=== PATIENT | female | born 1985 | race Two or more races ===

== ENCOUNTER 2018-05-28 15:17 | Outpatient (CLI) | payer BC ==
[2018-05-28 16:09] LABS: BASOPHILS % (AUTO) 0.1 % (0.0-2.0); EOSINOPHILS % (AUTO) 0.3 % (0.0-6.0); HEMATOCRIT 40 % (33-45); HEMOGLOBIN 13.7 g/dL (11.5-14.8); LYMPHOCYTES # (AUTO) 2.3 /CMM (0.8-4.8); LYMPHOCYTES % (AUTO) 21.7 % (20.0-44.0); MEAN CORPUSCULAR HGB CONC 34 g/dl (31.0-36.0); MEAN CORPUSCULAR VOLUME 90 fL (82-100); MONOCYTES # (AUTO) 0.7 /CMM (0.1-1.30); MONOCYTES % (AUTO) 6.5 % (2.0-12.0); NEUTROPHILS # (AUTO) 7.7 /CMM (1.8-8.9); NEUTROPHILS % (AUTO) 71.4 % (43.0-81.0); PLATELET COUNT (AUTO) 303 /CMM (150-450); RED BLOOD CELL COUNT(AUTO) 4.43 MIL/uL (4.0-5.2); WHITE BLOOD COUNT (AUTO) 10.8 K/uL (4.3-11.0)
[2018-05-30 12:17] LABS: *HGBFRC HEMOGLOBIN A2 2.4 % (1.8-3.2)
== END 2018-05-28 23:59 | disposition home or self-care (01) ==
LOC: LAB 15:17
PROVIDERS: ATTEND Obstetrics & Gynecology
DX: E84.0 Cystic fibrosis with pulmonary manifestations (principal); N91.0 Primary amenorrhea; B99.8 Other infectious disease; Z20.2 Contact with and (suspected) exposure to infections with a predominantly sexual mode of transmission; Z33.1 Pregnant state, incidental
CPT/HCPCS: 36415; 83021; 84443-TC; 85025-TC; 85660; 86592; 86593; 86803; 86900-TC; 87340; 87806

== ENCOUNTER 2018-07-30 08:21 | Outpatient (CLI) | payer BC | END 2018-07-30 23:59 | disposition home or self-care (01) | LOC: LAB 08:21 | PROVIDERS: ATTEND Obstetrics & Gynecology | DX: Z75.3 Unavailability and inaccessibility of health-care facilities (principal) | CPT/HCPCS: 36415; 82105 ==

== ENCOUNTER 2019-08-15 07:47 | Outpatient (CLI) | payer BC ==
[2019-08-15 09:48] LABS: BASOPHILS % (AUTO) 0.3 % (0.0-2.0); EOSINOPHILS % (AUTO) 4.1 % (0.0-6.0); HEMATOCRIT 41 % (33-45); HEMOGLOBIN 13.6 g/dL (11.5-14.8); LYMPHOCYTES # (AUTO) 1.9 /CMM (0.8-4.8); LYMPHOCYTES % (AUTO) 22.9 % (20.0-44.0); MEAN CORPUSCULAR HGB CONC 34 g/dl (31.0-36.0); MEAN CORPUSCULAR VOLUME 90 fL (82-100); MONOCYTES # (AUTO) 0.5 /CMM (0.1-1.30); MONOCYTES % (AUTO) 5.7 % (2.0-12.0); NEUTROPHILS # (AUTO) 5.7 /CMM (1.8-8.9); PLATELET COUNT (AUTO) 245 /CMM (150-450); WHITE BLOOD COUNT (AUTO) 8.5 K/uL (4.3-11.0)
== END 2019-08-15 23:59 | disposition home or self-care (01) ==
LOC: LAB 07:47
PROVIDERS: ATTEND Obstetrics & Gynecology
DX: N91.0 Primary amenorrhea (principal); Z33.1 Pregnant state, incidental; Z20.2 Contact with and (suspected) exposure to infections with a predominantly sexual mode of transmission
CPT/HCPCS: 36415; 84443-TC; 85025-TC; 86592; 86765; 86850-TC; 87340; 87806

== ENCOUNTER 2019-09-06 14:27 | Emergency (ER) | payer BC, OTHER ==
[~2019-09-06] VITALS: Ht 165.1 cm; Wt 83.9 kg
[2019-09-06 14:32] VITALS: BP 130/76
--- NOTE | 2019-09-06 15:34 | NUR ---
Patient discharged to home in stable condition. Written and verbal after care instructions given. Patient verbalizes understanding of instruction.
--- NOTE | 2019-09-06 15:34 | NUR ---
COVID SWAB SENT.
== END 2019-09-06 15:36 | disposition home or self-care (01) ==
LOC: ER 14:29
DX: Z03.818 Encounter for observation for suspected exposure to other biological agents ruled out (principal)
CPT/HCPCS: 99283; C9803; U0003

== ENCOUNTER 2019-09-24 08:24 | Emergency (ER) | payer BC, OTHER ==
[~2019-09-24] VITALS: Ht 165.1 cm; Wt 81.6 kg
[2019-09-24 08:34] VITALS: BP 165/77
== END 2019-09-24 09:43 | disposition home or self-care (01) ==
LOC: ER 08:24
DX: J02.9 Acute pharyngitis, unspecified (principal); Z20.828 Contact with and (suspected) exposure to other viral communicable diseases; Z33.1 Pregnant state, incidental
CPT/HCPCS: 87880; 99283; C9803; U0003; 86403-TC

== ENCOUNTER 2019-10-24 07:44 | Outpatient (CLI) | payer BC, OTHER | END 2019-10-24 23:59 | disposition home or self-care (01) | LOC: LAB 07:44 | PROVIDERS: ATTEND Obstetrics & Gynecology | DX: Z75.3 Unavailability and inaccessibility of health-care facilities (principal) ==

== ENCOUNTER 2019-11-21 09:31 | Outpatient (CLI) | payer BC, OTHER ==
[2019-11-21 10:09] LABS: BASOPHILS % (AUTO) 0.3 % (0.0-2.0); EOSINOPHILS % (AUTO) 2.4 % (0.0-6.0); HEMATOCRIT 42 % (33-45); HEMOGLOBIN 13.7 g/dL (11.5-14.8); LYMPHOCYTES # (AUTO) 1.9 /CMM (0.8-4.8); LYMPHOCYTES % (AUTO) 19.9 % (20.0-44.0); MEAN CORPUSCULAR HGB CONC 33 g/dl (31.0-36.0); MEAN CORPUSCULAR VOLUME 91 fL (82-100); MONOCYTES # (AUTO) 0.5 /CMM (0.1-1.30); MONOCYTES % (AUTO) 5.5 % (2.0-12.0); NEUTROPHILS % (AUTO) 71.9 % (43.0-81.0); PLATELET COUNT (AUTO) 227 /CMM (150-450); WHITE BLOOD COUNT (AUTO) 9.8 K/uL (4.3-11.0)
== END 2019-11-21 23:59 | disposition home or self-care (01) ==
LOC: LAB 09:31
PROVIDERS: ATTEND Obstetrics & Gynecology
DX: Z33.1 Pregnant state, incidental (principal)
CPT/HCPCS: 36415; 82947-TC; 85025-TC

== ENCOUNTER 2020-07-06 13:55 | Outpatient (CLI) | payer BC, OTHER | END 2020-07-06 23:59 | disposition home or self-care (01) | LOC: RAD 13:55 | PROVIDERS: ATTEND Legal Medicine | DX: M41.85 Other forms of scoliosis, thoracolumbar region (principal); M46.06 Spinal enthesopathy, lumbar region; M79.642 Pain in left hand; M79.641 Pain in right hand; M25.532 Pain in left wrist; M25.531 Pain in right wrist | CPT/HCPCS: 72100-TC; 73110; 73130-TC ==

== ENCOUNTER 2021-10-26 09:19 | Outpatient (CLI) | payer BC, OTHER ==
[2021-10-26 10:06] LABS: BASOPHILS % (AUTO) 0.5 % (0.0-2.0); EOSINOPHILS % (AUTO) 4.2 % (0.0-6.0); HEMATOCRIT 40 % (33-45); HEMOGLOBIN 13.6 g/dL (11.5-14.8); LYMPHOCYTES # (AUTO) 2.4 K/uL (0.8-4.8); MEAN CORPUSCULAR HGB CONC 34 g/dl (31.0-36.0); MEAN CORPUSCULAR VOLUME 90 fL (82-100); MONOCYTES # (AUTO) 0.4 K/uL (0.1-1.30); MONOCYTES % (AUTO) 6.3 % (2.0-12.0); NEUTROPHILS # (AUTO) 3.1 K/uL (1.8-8.9); PLATELET COUNT (AUTO) 255 K/uL (150-450); RED BLOOD CELL COUNT(AUTO) 4.45 MIL/uL (4.0-5.2); WHITE BLOOD COUNT (AUTO) 6.2 K/uL (4.3-11.0)
[2021-10-26 10:10] LABS: BILIRUBIN,URINE NEGATIVE (NEGATIVE); COLOR,URINE YELLOW (YELLOW); LEUKOCYTE ESTERASE ,URINE NEGATIVE (NEGATIVE); NITRITE, URINE NEGATIVE (NEGATIVE); PH,URINE 6.5 (5.0-8.0); PROTEIN,URINE NEGATIVE (NEGATIVE); UGLUCOSE NEGATIVE (NEGATIVE); UROBILINOGEN,URINE 0.2 EU/dL (0.2)
[2021-10-26 10:38] LABS: BACTERIA,URINE Rare /HPF (None Seen); RBC,URINE 0-2 /HPF (0-2); SQUAMOUS EPITHELIAL CELL,UR Moderate /HPF (None Seen); WBC,URINE 0-2 /HPF (0-3)
[2021-10-26 11:00] LABS: THYROID STIMULATING HORMONE 1.378 uIU/mL (0.358-3.74)
[2021-10-26 11:09] LABS: BILIRUBIN,TOTAL 0.2 mg/dL (0.2-1.0); CALCIUM, SERUM 8.5 mg/dL (8.5-10.1); CREATININE 0.6 mg/dL (0.6-1.3); POTASSIUM 3.7 mmol/L (3.5-5.1); TOTAL PROTEIN, SERUM 7.6 g/dL (6.4-8.2)
== END 2021-10-26 23:59 | disposition home or self-care (01) ==
LOC: MRI 09:19
PROVIDERS: ATTEND Legal Medicine
DX: S56.511A Strain of other extensor muscle, fascia and tendon at forearm level, right arm, initial encounter (principal); Z00.00 Encounter for general adult medical examination without abnormal findings; E03.9 Hypothyroidism, unspecified; D64.9 Anemia, unspecified; E55.9 Vitamin D deficiency, unspecified; E78.00 Pure hypercholesterolemia, unspecified; E11.9 Type 2 diabetes mellitus without complications; M77.11 Lateral epicondylitis, right elbow; X58.XXXA Exposure to other specified factors, initial encounter; Y93.89 Activity, other specified; Y92.89 Other specified places as the place of occurrence of the external cause; Y99.8 Other external cause status
CPT/HCPCS: 36415; 73221-TC; 80053-TC; 80061-TC; 81001; 82306; 82607-TC; 82728-TC; 83540-TC; 84439-TC; 84443-TC; 85025-TC

== ENCOUNTER 2021-11-16 14:41 | Emergency (ER) | payer BC, OTHER ==
[~2021-11-16] VITALS: Ht 165.1 cm; Wt 81.6 kg
[2021-11-16 15:12] LABS: BILIRUBIN,URINE NEGATIVE (NEGATIVE); COLOR,URINE YELLOW (YELLOW); LEUKOCYTE ESTERASE ,URINE MODERATE (NEGATIVE); NITRITE, URINE POSITIVE (NEGATIVE); PH,URINE 6.5 (5.0-8.0); PROTEIN,URINE NEGATIVE (NEGATIVE); UGLUCOSE NEGATIVE (NEGATIVE)
[2021-11-16] MEDS ORDERED: CEPH500T PO (15:41)
[2021-11-16] MEDS ORDERED: PHEN-705 PO (15:43)
[2021-11-16] MEDS ORDERED: CEPHALEXIN MONOHYDRATE 500 MG CAPSULE PO ONE ×2 (15:43→16:00)
[2021-11-16 15:44] LABS: BACTERIA,URINE Moderate /HPF (None Seen); RBC,URINE 21-50 /HPF (0-2)
[2021-11-16 15:45] LABS: SQUAMOUS EPITHELIAL CELL,UR Many /HPF (None Seen)
--- NOTE | 2021-11-16 15:48 | NUR ---
Patient discharged to home in stable condition. Written and verbal after care instructions given. Patient verbalizes understanding of instruction.
[2021-11-16 15:50] VITALS: BP 120/76
== END 2021-11-16 15:50 | disposition home or self-care (01) ==
LOC: ER 14:48
DX: N39.0 Urinary tract infection, site not specified (principal); Z79.899 Other long term (current) drug therapy
CPT/HCPCS: 81001; 87086-TC; 87186-TC

== ENCOUNTER 2022-03-18 09:32 | Outpatient (CLI) | payer BC, OTHER ==
[~2022-03-18 09:32] MED LIST: CEPH500T PO; PHEN-705 PO
== END 2022-03-18 23:59 | disposition home or self-care (01) ==
LOC: LAB 09:32
PROVIDERS: ATTEND Psychiatry & Neurology Neurology
DX: R20.0 Anesthesia of skin (principal); M54.2 Cervicalgia
CPT/HCPCS: 72141-TC

== ENCOUNTER 2022-12-05 10:09 | Outpatient (CLI) | payer BC, OTHER ==
[2022-12-05 11:18] LABS: APPEARANCE,URINE SLIGHTLY CLOUDY (CLEAR); BILIRUBIN,URINE NEGATIVE (NEGATIVE); BLOOD, URINE TRACE-INTA Ery/uL (NEGATIVE); COLOR,URINE YELLOW (YELLOW); KETONES,URINE NEGATIVE (NEGATIVE); LEUKOCYTE ESTERASE ,URINE NEGATIVE (NEGATIVE); NITRITE, URINE NEGATIVE (NEGATIVE); PROTEIN,URINE NEGATIVE (NEGATIVE); UGLUCOSE NEGATIVE (NEGATIVE); UROBILINOGEN,URINE 0.2 EU/dL (0.2)
[2022-12-05 11:31] LABS: BASOPHILS % (AUTO) 0.6 % (0.0-2.0); EOSINOPHILS # (AUTO) 0.3 K/uL (0.0-0.7); EOSINOPHILS % (AUTO) 4.7 % (0.0-6.0); HEMATOCRIT 42 % (33-45); HEMOGLOBIN 14.2 g/dL (11.5-14.8); LYMPHOCYTES # (AUTO) 2.3 K/uL (0.8-4.8); MEAN CORPUSCULAR HEMOGLOBIN 30 PG (26.0-33.0); MEAN CORPUSCULAR HGB CONC 34 g/dl (31.0-36.0); MEAN CORPUSCULAR VOLUME 89 fL (82-100); MONOCYTES # (AUTO) 0.4 K/uL (0.1-1.30); MONOCYTES % (AUTO) 6.5 % (2.0-12.0); NEUTROPHILS # (AUTO) 3.4 K/uL (1.8-8.9); NEUTROPHILS % (AUTO) 52.2 % (43.0-81.0); PLATELET COUNT (AUTO) 282 K/uL (150-450); RED BLOOD CELL COUNT(AUTO) 4.71 MIL/uL (4.0-5.2); RED CELL DISTRIBUTION WIDTH 12.3 % (11.5-15.0); WHITE BLOOD COUNT (AUTO) 6.5 K/uL (4.3-11.0)
[2022-12-05 11:37] LABS: ADD URINE CULTURE NO; BACTERIA,URINE None seen /HPF (None Seen); MUCUS,URINE Many /LPF (None Seen); RBC,URINE 0-2 /HPF (0-2); SQUAMOUS EPITHELIAL CELL,UR Rare /HPF (None Seen); WBC,URINE 0-2 /HPF (0-3)
[2022-12-05 12:12] LABS: THYROID STIMULATING HORMONE 0.989 uIU/mL (0.358-3.74)
[2022-12-05 12:20] LABS: BILIRUBIN,TOTAL 0.3 mg/dL (0.2-1.0); CALCIUM, SERUM 9.1 mg/dL (8.5-10.1); POTASSIUM 3.5 mmol/L (3.5-5.1); TOTAL PROTEIN, SERUM 7.9 g/dL (6.4-8.2)
[2022-12-05 12:31] LABS: CREATININE 0.8 mg/dL (0.6-1.3)
[2022-12-06 04:06] LABS: VIT D, 25-HYDROXY 68.5 ng/mL (30.0-100.0)
[2022-12-06 06:07] LABS: FOLIC ACID 16.8 ng/mL (>3.0)
[2022-12-06 08:06] LABS: *TESTOSTERONE, SERUM 31 ng/dL (8-60); ESTRADIOL (*R) 53.1 pg/mL (.); THYROID PEROXIDASE (TPO) AB 15 IU/mL (0-34)
[2022-12-07 22:06] LABS: *THYROGLOBULIN <1.0 IU/mL (0.0-0.9); THYROGLOBULIN BY IMA 24.2 ng/mL (1.5-38.5)
== END 2022-12-05 23:59 | disposition home or self-care (01) ==
LOC: LAB 10:09
PROVIDERS: ATTEND Legal Medicine
DX: Z00.00 Encounter for general adult medical examination without abnormal findings (principal); R53.1 Weakness; E11.9 Type 2 diabetes mellitus without complications; E78.00 Pure hypercholesterolemia, unspecified; K21.9 Gastro-esophageal reflux disease without esophagitis; I10 Essential (primary) hypertension; E03.9 Hypothyroidism, unspecified; D64.9 Anemia, unspecified; E55.9 Vitamin D deficiency, unspecified
CPT/HCPCS: 36415; 80053-TC; 80061-TC; 81001; 82306; 82607-TC; 82626; 82670; 82728-TC; 83540-TC; 84403; 84439-TC; 84443-TC; 85025-TC; 86376

== ENCOUNTER 2024-04-26 07:34 | Emergency (ER) | payer BC, OTHER ==
[~2024-04-26] VITALS: Ht 165.1 cm; Wt 59.0 kg
[2024-04-26 07:44] VITALS: TEMP 98.2
[2024-04-26] MEDS ORDERED: BENZ-13 PO (08:41)
[2024-04-26] MEDS ORDERED: IBUP-1955 PO (08:41)
[2024-04-26 08:46] VITALS: O2SAT 98
[2024-04-26] MEDS: ALBUTEROL FS 2.5 MG/3 ML VIAL.NEB NEB ONE (08:46)
[2024-04-26] MEDS ORDERED: ALBUTEROL FS 2.5 MG/3 ML VIAL.NEB ONE (08:46)
[2024-04-26 09:00] VITALS: O2SAT 99
[2024-04-26] MEDS ORDERED: AMOX-430 PO (09:08)
[2024-04-26] MEDS ORDERED: AZIT250T13 PO (09:08)
[2024-04-26] MEDS ORDERED: ALBU18HF2 INH (09:08)
[2024-04-26 09:52] VITALS: BP 119/74; O2SAT 99
== END 2024-04-26 09:52 | disposition home or self-care (01) ==
LOC: ER 07:46
DX: J06.9 Acute upper respiratory infection, unspecified (principal); R06.02 Shortness of breath; R07.89 Other chest pain; Z20.822 Contact with and (suspected) exposure to COVID-19
CPT/HCPCS: 71045-TC